=== PATIENT | male | born 1990 | race Caucasian/White ===

== ENCOUNTER 2021-07-04 06:44 | Emergency (ER) | payer OTHER | END 2021-07-04 09:25 | disposition home or self-care (01) | LOC: JD.ED 06:44 | DX: U07.1 COVID-19 (principal); J40 Bronchitis, not specified as acute or chronic; J45.909 Unspecified asthma, uncomplicated; K21.9 Gastro-esophageal reflux disease without esophagitis; Z79.899 Other long term (current) drug therapy | CPT/HCPCS: 71045; 71045-26; 99283-25; U0002 ==

== ENCOUNTER 2022-02-16 14:48 | Emergency (ER) | payer SELFPAY ==
[2022-02-16] MEDS ORDERED: Diphtheria,Pertussis(Acell),Tetanus Vaccine 0.5 ML Syringe IM ONE (15:58)
== END 2022-02-16 16:59 | disposition home or self-care (01) ==
LOC: JD.ED 14:48
DX: S61.211A Laceration without foreign body of left index finger without damage to nail, initial encounter (principal); K21.9 Gastro-esophageal reflux disease without esophagitis; Z23 Encounter for immunization; Z88.0 Allergy status to penicillin; Z79.899 Other long term (current) drug therapy; W45.8XXA Other foreign body or object entering through skin, initial encounter; Y99.0 Civilian activity done for income or pay
CPT/HCPCS: 12001; 90471; 90715; 99282; 99282-25

== ENCOUNTER 2022-08-15 14:42 | Emergency (ER) | payer OTHER ==
[2022-08-15] MEDS ORDERED: Lidocaine 1% 10 ML MDV INJECT ONE (15:27)
== END 2022-08-15 16:18 | disposition home or self-care (01) ==
LOC: JD.ED 14:42
DX: S61.210A Laceration without foreign body of right index finger without damage to nail, initial encounter (principal); J45.909 Unspecified asthma, uncomplicated; K21.9 Gastro-esophageal reflux disease without esophagitis; Z72.0 Tobacco use; Z88.0 Allergy status to penicillin; Z79.899 Other long term (current) drug therapy; W26.8XXA Contact with other sharp object(s), not elsewhere classified, initial encounter
CPT/HCPCS: 12001; 99282; J3490

== ENCOUNTER 2023-12-04 15:38 | Emergency (ER) | payer OTHER ==
[2023-12-04] MEDS: Lidocaine 1% 10 ML MDV INJECT ONE (16:27)
== END 2023-12-04 17:04 | disposition home or self-care (01) ==
LOC: JD.ED 15:38
DX: S61.012A Laceration without foreign body of left thumb without damage to nail, initial encounter (principal); K21.9 Gastro-esophageal reflux disease without esophagitis; Z90.49 Acquired absence of other specified parts of digestive tract; Z79.899 Other long term (current) drug therapy; Z88.0 Allergy status to penicillin; W26.8XXA Contact with other sharp object(s), not elsewhere classified, initial encounter; Y99.0 Civilian activity done for income or pay; Y92.69 Other specified industrial and construction area as the place of occurrence of the external cause
CPT/HCPCS: 12001; 99282; J3490